=== PATIENT | male | born 1950 | race Caucasian/White ===

== ENCOUNTER 2018-06-09 15:16 | Outpatient (REF) | payer MEDICARE, SELFPAY ==
[2018-06-09 19:29] LABS: Anion Gap 7.1 mmol/L (3-11); BUN 22 mg/dL (7-18); CO2 30.9 mmol/L (21.0-32.0); CREATININE 1.16 mg/dL (0.70-1.30); Calcium 9.1 mg/dL (8.5-10.1); Chloride 102 mmol/L (98-107); Glucose 100 mg/dL (70-100); LDL CHOLESTEROL 102 mg/dL (<100); Potassium 4.1 mmol/L (3.5-5.1); Sodium 140 mmol/L (136-145)
[2018-06-09 22:08] LABS: Vitamin D 25 Total > 150 ng/ml (30-100)
== END 2018-06-09 15:36 ==
LOC: NCHCN 15:16
PROVIDERS: PCP Physician Assistant Medical; Visit Provider Internal Medicine
DX: E78.5 Hyperlipidemia, unspecified (principal); I10 Essential (primary) hypertension; E20.9 Hypoparathyroidism, unspecified
CPT/HCPCS: 80048; 82306; 83721

== ENCOUNTER 2018-07-29 16:46 | Outpatient (REF) | payer MEDICARE, SELFPAY | END 2018-07-29 17:06 | LOC: NCHCN 16:46 | PROVIDERS: PCP Physician Assistant Medical; Visit Provider Internal Medicine | DX: E20.9 Hypoparathyroidism, unspecified (principal) ==

== ENCOUNTER 2018-07-29 17:20 | Outpatient (REF) | payer MEDICARE, SELFPAY ==
[2018-07-29 20:41] LABS: Calcium 8.8 mg/dL (8.5-10.1)
[2018-07-29 20:50] LABS: Total Volume 2600 ml
[2018-08-01 09:23] LABS: Calcium Urine 19.4 mg/dl; Calcium Urine 24 hr 504 mg/24hr (100-300)
== END 2018-07-29 17:40 ==
LOC: NCHCN 17:20
PROVIDERS: PCP Physician Assistant Medical; Visit Provider Internal Medicine
DX: E20.9 Hypoparathyroidism, unspecified (principal)
CPT/HCPCS: 81050; 82310; 82340; 84155

== ENCOUNTER 2019-01-25 09:59 | Outpatient (REF) | payer MEDICARE, SELFPAY ==
[2019-01-25 20:57] LABS: Calcium 8.7 mg/dL (8.5-10.1)
[2019-01-26 08:32] LABS: Vitamin D 25 Total 115.3 ng/ml (30-100)
== END 2019-01-25 10:19 ==
LOC: NCHCN 09:59
PROVIDERS: PCP Physician Assistant Medical; Visit Provider Internal Medicine
DX: E20.9 Hypoparathyroidism, unspecified (principal)
CPT/HCPCS: 82306; 82310

== ENCOUNTER 2019-08-03 14:10 | Outpatient (REF) | payer MEDICARE, SELFPAY ==
[2019-08-03 19:51] LABS: Anion Gap 8.2 mmol/L (3-11); BUN 24 mg/dL (7-18); CO2 29.8 mmol/L (21.0-32.0); CREATININE 1.04 mg/dL (0.70-1.30); Calcium 8.2 mg/dL (8.5-10.1); Chloride 103 mmol/L (98-107); Glucose 94 mg/dL (74-106); Potassium 4.4 mmol/L (3.5-5.1); Sodium 141 mmol/L (136-145)
== END 2019-08-03 14:30 ==
LOC: NCHCN 14:10
PROVIDERS: PCP Physician Assistant Medical; Visit Provider Internal Medicine
DX: I10 Essential (primary) hypertension (principal); E20.9 Hypoparathyroidism, unspecified
CPT/HCPCS: 80048

== ENCOUNTER 2020-01-04 11:13 | Outpatient (REF) | payer MEDICARE, SELFPAY ==
[2020-01-04 19:24] LABS: Calcium 8.2 mg/dL (8.5-10.1)
[2020-01-04 19:56] LABS: Vitamin D 25 Total 82.5 ng/ml (30-100)
== END 2020-01-04 11:33 ==
LOC: NCHCN 11:13
PROVIDERS: PCP Physician Assistant Medical; Visit Provider Internal Medicine
DX: I10 Essential (primary) hypertension (principal); E20.9 Hypoparathyroidism, unspecified; C44.621 Squamous cell carcinoma of skin of unspecified upper limb, including shoulder; E66.9 Obesity, unspecified
CPT/HCPCS: 82306; 82310

== ENCOUNTER 2020-05-13 16:31 | Outpatient (REF) | payer MEDICARE, SELFPAY ==
[2020-05-15 15:52] LABS: COVID-19 RT-PCR UVMMC Result Negative (Negative)
== END 2020-05-13 16:51 ==
LOC: NCHCN 16:31
PROVIDERS: PCP Physician Assistant Medical; Visit Provider Internal Medicine
DX: Z20.828 Contact with and (suspected) exposure to other viral communicable diseases (principal)
CPT/HCPCS: U0003

== ENCOUNTER 2020-08-09 19:10 | Outpatient (REF) | payer MEDICARE, SELFPAY ==
[2020-08-09 19:07] LABS: Anion Gap 8.2 mmol/L (3-11); BUN 18 mg/dL (7-18); CO2 29.8 mmol/L (21.0-32.0); CREATININE 1.1 mg/dL (0.70-1.30); Calcium 8.2 mg/dL (8.5-10.1); Chloride 103 mmol/L (98-107); Glucose 92 mg/dL (74-106); Potassium 3.6 mmol/L (3.5-5.1); Sodium 141 mmol/L (136-145)
== END 2020-08-09 19:11 | disposition home or self-care (01) ==
LOC: NCHCN 19:10
PROVIDERS: PCP Physician Assistant Medical; Visit Provider Internal Medicine
DX: I73.9 Peripheral vascular disease, unspecified (principal); E66.8 Other obesity; I10 Essential (primary) hypertension
CPT/HCPCS: 80048; 82306

== ENCOUNTER 2021-08-28 19:00 | Outpatient (REF) | payer MEDICARE, SELFPAY ==
[2021-08-28 19:50] LABS: ALT 44 U/L (16-63); Anion Gap 11.9 mmol/L (3-11); BUN 20 mg/dL (7-18); CO2 27.1 mmol/L (21.0-32.0); Calcium 8.6 mg/dL (8.5-10.1); Calculated LDL 97 mg/dL (<100); Chloride 100 mmol/L (98-107); Cholesterol 185 mg/dL (<200); Glucose 85 mg/dL (74-106); HDL Cholesterol 46 mg/dL (40-60); PHOSPHORUS 3.6 mg/dL (2.6-4.7); Sodium 139 mmol/L (136-145); Triglyceride 210 mg/dL (<150)
[2021-09-01 10:42] LABS: Hepatitis C Ab w Rflx HCV PCR Negative (Negative)
== END 2021-08-28 19:01 | disposition home or self-care (01) ==
LOC: NCHCN 19:00
PROVIDERS: PCP Physician Assistant Medical; Visit Provider Internal Medicine
DX: I10 Essential (primary) hypertension (principal); E20.9 Hypoparathyroidism, unspecified; Z11.59 Encounter for screening for other viral diseases
CPT/HCPCS: 80061; 80069; 86803; 84460

== ENCOUNTER 2022-04-08 18:51 | Outpatient (REF) | payer MEDICARE, SELFPAY ==
[2022-04-08 18:47] LABS: Anion Gap 7.7 mmol/L (3-11); BUN 20 mg/dL (7-18); CO2 30.3 mmol/L (21.0-32.0); Chloride 100 mmol/L (98-107); Estimated GFR 80.47 (mL/min/1.73m2); Glucose 99 mg/dL (74-106); Potassium 3.9 mmol/L (3.5-5.1); Sodium 138 mmol/L (136-145)
== END 2022-04-08 18:52 | disposition home or self-care (01) ==
LOC: NCHCN 18:51
PROVIDERS: PCP Physician Assistant Medical; Visit Provider Internal Medicine
DX: E20.9 Hypoparathyroidism, unspecified (principal)
CPT/HCPCS: 80048

== ENCOUNTER 2023-09-02 18:43 | Outpatient (REF) | payer MEDICARE, SELFPAY ==
[2023-09-02 19:35] LABS: Hemoglobin A1C 5.9 % (<5.7)
[2023-09-02 19:54] LABS: Calculated LDL 109 mg/dL (<100); Cholesterol 210 mg/dL (<200); HDL Cholesterol 45 mg/dL (40-60); Triglyceride 283 mg/dL (<150); Vitamin B12 272 pg/mL (193-986)
[2023-09-03 18:24] LABS: PSA, Diagnostic 2.5 ng/mL (<=6.5)
[2023-09-06 09:19] LABS: IgA 202 mg/dL (85-499); IgG 961 mg/dL (610-1616); IgM 29 mg/dL (35-242)
[2023-09-06 14:04] LABS: Albumin 60.2 % (55.8-66.1); Albumin g/dL 4.3 g/dL (3.6-5.2); Total Protein 7.1 g/dL (6.3-8.2)
== END 2023-09-02 18:44 | disposition home or self-care (01) ==
LOC: NCHCN 18:43
PROVIDERS: PCP Physician Assistant Medical; Visit Provider Internal Medicine
DX: G60.9 Hereditary and idiopathic neuropathy, unspecified (principal); N40.0 Benign prostatic hyperplasia without lower urinary tract symptoms
CPT/HCPCS: 80061; 82784; 82607; 83036; 84153; 84165

== ENCOUNTER → 2023-10-11 01:26 | Outpatient (CLI) | payer MEDICARE, SELFPAY ==
--- NOTE | 2023-10-11 | DI.NM_ITS ---
APPROVED REPORT Exam: Pharmacologic Patient Location: Out-Patient Room/Bed: Stress Nurse: Robert Pradhan RN Ordering Provider:CASE BROOKE, Contact Number: [phone] BMI: 43.26 Baseline Rhythm: Sinus Bradycardia Indications: Atypical Chest Pain. Medical History Medical History: HTN, Obesity Cardiac Medications: Lisinopril, amlodipine Allergies: Lipitor Cardiac Risk Factors: Obesity Pretest Chest Pain Characteristics: No chest pain Exercise History: Indeterminate Physical Disabilities: Knees Lung Sounds: Clear to auscultation Heart Sounds: Regular Stress Test Details Test: Pharmacologic stress was paired with low level exercise. Reason for pharmacologic stress test: physical limitation. Nuclear Acquisition: Rest Tc-99m/Stress Tc-99m 1 day Rest Isotope: Tc-99m Sestamibi. Dose: 16.5 Date: 10/11/2023 Injection Time: 0830 Stress Isotope: Tc-99m Sestamibi. Dose: 47.0 Date: 10/11/2023 Injection Time: 0955 HR Resting HR Supine: 50 bpm Max Heart Rate (APMHR): 148.987970 bpm Resting HR Standin bpm Target HR (85% APMHR): 125.933609 bpm Max HR Achieved: 99 bpm % of APMHR: 66.89 Recovery HR: 71 bpm HR response to stress: Normal HR response to stress BP Resting BP Supine: 150/78 mmHg Resting BP Standin/80 mmHg Max BP: 160/90 mmHg Recovery BP: 158/62 mmHg BP response to stress: Normal blood pressure response to stress. ECG Resting ECG: Sinus Bradycardia Ectopy: none Stress ECG: Sinus Rhythm ST Change: None Arrhythmia: None Recovery ECG: Sinus Rhythm Recovery ST Change: No significant ST segment changes noted Recovery Arrhythmia: None Clinical Exercise duration: 4 min01 sec Exercise capacity: 1.16 METs Angina Score: None Rate Pressure Product: [id number] Stress ECG Conclusion 1. Resting electrocardiogram showed poor R wave progression 2. Patient underwent testing using pharmacologic stress with regadenoson 3. Peak heart rate achieved was 67% of predicted for age 4. The electrocardiographic portion of the test was nondiagnostic 5. See MPI report Stress Test Summary STAGE HR BP SpO2 Symptoms NOTES Supine 50 150/78 Standing 60 140/80 1 min post Lexiscan injection 81 160/90 94 3 min post Lexiscan injection 98 148/60 96 6 min post Lexiscan injection 71 158/62 MPI Conclusion Myocardial perfusion is normal. There is no ischemia or evidence of prior infarction Ejection fraction calculated to be 44%. 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 Radiologist Interpretation by: Jose Luis Johnston MD Interpretation Date/Time: 10/11/2023 17:50:15
[2023-10-11] MEDS: Regadenoson 0.4 MG/5 ML SYR IVP (10:35)
== END ==
PROVIDERS: PCP Physician Assistant Medical; Visit Provider Internal Medicine
DX: R07.89 Other chest pain (principal)
CPT/HCPCS: 78452; 93016; 93018; 93017; J2785

== ENCOUNTER 2024-05-08 15:15 | Outpatient (CLI) | payer MEDICARE, SELFPAY ==
--- NOTE | 2024-05-08 10:30 | DI.RAD_ITS ---
Exam(s) XR HIP PELVIS ADULT BL EXAM: XR HIP PELVIS ADULT BL CLINICAL HISTORY: eval bilateral hip stiffness and pain. TECHNIQUE: 2D digital imaging was performed of the pelvis and bilateral hips. Three images were obt ained. AP pelvis and lateral views of both hips were obtained. COMPARISON: No exams were available for comparison FINDINGS: BONES: No acute fracture is present. No bony destructive lesion is seen. JOINTS: No dislocation present. There is mild narrowing of the hips, right greater than left. There is a subchondral cyst in the lateral aspect of the left acetabulum. Small raised areas are seen at t he head neck junctions of both femurs which can be seen with SUZIE. SOFT TISSUE: Normal. IMPRESSION: Degenerative changes seen in the hips bilaterally as described above. DATA REPOSITORY: RADIATION DOSE DELIVERED:
--- NOTE | 2024-05-08 10:30 | DI.RAD_ITS ---
Exam(s) XR KNEE LT 3V AP,LAT,MERI EXAM: XR KNEE LT 3V AP,LAT,MERI CLINICAL HISTORY: eval l knee OA. TECHNIQUE: 2D digital imaging was performed of the left knee. Three images were obtained. AP, late ral and PA tunnel views were obtained. COMPARISON: CR ORTHO KNEE LEFT 4+VIEWS from 07/24/2016 FINDINGS: BONES: No acute fracture is present. No bony destructive lesion is seen. There is an enthesophyte at the superior patella. JOINTS: There is marked narrowing of the medial femoral tibial joint with [id number] contact. Ther e is also marked narrowing of the patellofemoral joint. Osteophytes are seen involving all 3 joint c ompartments, particularly the patellofemoral joint. There is a small joint effusion. There is an os seous density again seen anterior to the tibial plateau. SOFT TISSUE: Vascular calcification is present. IMPRESSION: Marked osteoarthritis of the knee. DATA REPOSITORY: RADIATION DOSE DELIVERED:
== END 2024-05-08 15:16 | disposition home or self-care (01) ==
LOC: DIORS 15:15
PROVIDERS: PCP Internal Medicine; Referring Provider Internal Medicine; Visit Provider Student in an Organized Health Care Education/Training Program
DX: M17.12 Unilateral primary osteoarthritis, left knee; M16.11 Unilateral primary osteoarthritis, right hip; M16.12 Unilateral primary osteoarthritis, left hip
CPT/HCPCS: 20610; 73521; 73562; 99203; J1010

== ENCOUNTER → 2024-08-07 10:06 | Outpatient (BNVA) | payer MEDICARE, SELFPAY | PROVIDERS: PCP Internal Medicine; Referring Provider Internal Medicine; Visit Provider Student in an Organized Health Care Education/Training Program | DX: M16.11 Unilateral primary osteoarthritis, right hip (principal); M16.12 Unilateral primary osteoarthritis, left hip; M17.12 Unilateral primary osteoarthritis, left knee | CPT/HCPCS: 99213 ==

== ENCOUNTER 2024-08-31 12:15 | Outpatient (REF) | payer MEDICARE, SELFPAY ==
[2024-08-31 20:11] LABS: ALT 33 U/L (16-63); Anion Gap 5.4 mmol/L (3-11); BUN 32 mg/dL (7-18); CO2 31.6 mmol/L (21.0-32.0); Calcium 8.8 mg/dL (8.5-10.1); Calculated LDL 82 mg/dL (<100); Chloride 106 mmol/L (98-107); Cholesterol 158 mg/dL (<200); Estimated GFR 79.47 (mL/min/1.73m2); Glucose 100 mg/dL (74-106); HDL Cholesterol 60 mg/dL (>or=40); Potassium 4.4 mmol/L (3.5-5.1); Sodium 143 mmol/L (136-145); Triglyceride 81 mg/dL (<150)
[2024-08-31 20:44] LABS: Creatine Kinase 144 U/L (39-308)
== END 2024-08-31 12:16 | disposition home or self-care (01) ==
LOC: NCHCN 12:15
PROVIDERS: PCP Internal Medicine; Visit Provider Internal Medicine
DX: I10 Essential (primary) hypertension (principal)
CPT/HCPCS: 80048; 80061; 82550; 84460